=== PATIENT | male | born 2000 | race African-American/Black ===

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

== ENCOUNTER 2018-01-08 15:40 | Emergency (ER) | payer OTHER ==
[2018-01-08] MEDS ORDERED: traMADol TAB* 50 MG PO ONE (16:13)
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
[2018-01-08 18:13] VITALS: BP 127/70
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
== END 2018-01-08 18:12 | disposition home or self-care (01) ==
LOC: ED 15:40
DX: S31.35XA Open bite of scrotum and testes, initial encounter (principal); Y04.1XXA Assault by human bite, initial encounter; Y92.149 Unspecified place in prison as the place of occurrence of the external cause
CPT/HCPCS: 76870; 99282; A9270-GY